=== PATIENT | female | born 1945 | race African-American/Black ===

== ENCOUNTER 2016-04-16 15:17 | Inpatient (IN) | payer OTHER ==
[~2016-04-16] VITALS: Ht 165.1 cm; Wt 173.7 kg
[~2016-04-16 15:17] MED LIST: ABILIFY5 MG PO; ALBUTEROL SULFATE IH; ALBUTEROL0.63 MG/3 IH; AMARYL1 MG PO; AMARYL2 MG PO; AMARYL4 MG PO; AMBIEN10 MG PO; ARIXTRA10 MG/0.8 SQ; ASPIR-TRIN325 M1 PO; ASPIRIN81 M1 PO; BACTROBAN CREAM15 GM TP; BENADRYL25 MG PO; BENTYL20 MG PO; BIOTIN 5000MCG PO; Bentyl PO; CEFTIN500 MG PO; CELEXA10 M1 PO; CELEXA10 MG PO; CELEXA20 MG PO; CHERATUSSIN AC473 ML PO; CITALOPRAM HBR20 MG PO; CLEOCIN150 MG PO; CLOBETASOL PROP60 GM TP; COMBIVENT INH14.7 GM IH; COREG12.5 M1 PO; COREG12.5 MG PO; COUMADIN,JANTO7.5 MG PO; COUMADIN,JANTOV10 MG PO; COUMADIN,JANTOVE5 MG PO; COUMADIN1 MG; COUMADIN10 MG PO; COUMADIN5 MG PO; COUMADIN7.5 MG PO; Ceftin PO; Combivent IH; Coreg PO; Coumadin Protocol PO; Coumadin,Jantoven PO; DERMAPHOR228 GM TP; DULCOLAX PR; DULCOLAX10 MG PR; DUONEB 2.5-0.5 M3 ML IH; EDLUAR10 MG SL; ENDOCET 5-3251 EACH PO; FERROUS FUMARATE PO; FIORICET 50-321 EAC1 PO; FIORICET 50-321 EACH PO; FIORICET PO; FIORICET,ESG1 TABLET PO; FLONASE16 G1 BOTH NARES; FLONASE16 GM BOTH NARES; FLONASE16 GM NS; FLOVENT 11120 INHALA IH; FLOVENT IH; FOLIC ACID1 MG PO; FUROSEMIDE80 MG PO; Flonase BOTH NARES; Flonase NS; Flovent 110 mcg IH; GLIMEPIRIDE2 MG PO; GLYNASE3 MG PO; GUIATUSS100 MG/5 M PO; HYDROCODON-ACE1 EAC7 PO; IPRATROPIU0.2 MG/1 M IH; IRON325 M1 PO; JANUVIA PO; JANUVIA100 MG PO; KEFLEX500 MG PO; KETOCONAZOLE60 GM TP; KLOR-CON M2020 MEQ PO; LAC-HYDRIN 12%140 GM TL; LANTUS (UNITS)1 UNIT SC; LANTUS 10100 UNITS/ SC; LANTUS 3 M100 UNITS/ SC; LANTUS 3 M100 UNITS1 SC; LANTUS100 UNIT/1 SC; LANTUS100 UNIT/2 SQ; LASIX40 MG PO; LASIX80 MG PO; LEVEMIR100 UNIT/2 SC; LIDODERM 5% P1 PATCH PO; LIDODERM 5% P1 PATCH TD; LIFE-PACK0.8 MG PO; LISINOPRIL10 MG PO; LYRICA150 MG PO; LYRICA50 MG PO; Levaquin PO; MAALOX PLUS X-150 ML PO; MAALOX PLUS1 TABLET PO; MARTEN-TAB 3251 EACH PO; MEDROL DOSEPAK4 MG PO; MILK OF MAGNESI10 ML PO; MIRALAX17 GM PO; MIRALAX255 GM PO; MORPHINE SULFAT15 M1 PO; MORPHINE SULFAT15 MG PO; MS CONTIN,ORAMO15 M1 PO; MULTIVITAMIN1 EAC2 PO; MULTIVITAMINS1 EAC6 PO; MYCOSTATIN1 APPLICAT TP; NITROGLYCERIN0.4 MG SL; NORCO 5/3251 TABLET PO; NOVOLOG PE100 UNITS/ SC; NYSTATIN TP; OMEPRAZOLE20 MG PO; OMEPRAZOLE40 M1 PO; PERCOCET 5-3251 EACH PO; PERCOCET 5/31 TABLET PO; PERCOCET PO; PHILLIPS'400 MG/5 M PO; PLAVIX75 MG PO; POLYETHYLENE GL17 GM PO; PRAVACHOL20 MG PO; PRILOSEC20 MG PO; PRILOSEC40 MG PO; PRINIVIL10 MG PO; PRINIVIL20 MG PO; PROAIR HFA8.5 GM IH; Prilosec PO; Q-TUSSIN DM SY240 ML PO; ROBITUSSIN NIG118 ML PO; SENNA PLUS TAB1 EACH PO; SIMVASTATIN20 MG PO; SYMBICORT60 INHALAT IH; TAMIFLU75 MG PO; TEMOVATE 0.05%30 GM TP; TOPAMAX100 MG PO; TOPAMAX200 MG PO; TOPIRAMATE200 MG PO; TRAMADOL HCL50 MG PO; TRANSDERM-NITR0.4 MG TP; TYLENOL EXTRA500 MG PO; TYLENOL REGULA325 MG PO; TYLENOL WITH C1 EACH PO; Topamax PO; ULTRAM50 MG PO; VENTOLIN HFA18 GM IH; VICODIN,LORT1 TABLET PO; VITAMIN D5000 UNIT PO; VITAMIN D50000 UNIT PO; VITRON-C PO; VITRON-C TABLE1 EACH PO; WARFARIN SODIUM5 MG PO; ZANAFLEX2 M1 PO; ZESTRIL,PRINIV2.5 MG PO; ZESTRIL2.5 MG PO; ZITHROMAX250 MG PO; ZOCOR20 MG PO; ZOFRAN4 MG PO; ZYRTEC10 M1 PO; ZYRTEC10 M3 PO; [UNRECOGNIZED DRUG - OTHER] PO; [UNRECOGNIZED DRUG - OTHER] PO; celeXA PO; predniSONE PO
[2016-04-16 17:36] LABS: HEMATOCRIT 35.7 % (36.0-46.0); MCHC 32.2 G/DL (30.0-36.0); MCV 80.8 FL (83-99); MEAN PLAT.VOLUME 11.8 uM^3 (9.5-12.4); PLATELET COUNT 143 K/uL (156-360); RBC DIS.WIDTH-CV 16.4 % (11.8-14.6); RBC DIS.WIDTH-SD 46.8 % (39-53); RED BLOOD COUNT 4.42 M/uL (3.80-5.20); WHITE BLOOD COUNT 14.6 K/uL (4.1-10.2)
[2016-04-16 17:36] LABS: ADD MIUA? NO; BILIRUBIN NEGATIVE; BLOOD NEGATIVE; COLOR YELLOW ((YELLOW)); GLUCOSE (STRIP) NEGATIVE; KETONES NEGATIVE; LEUKOCYTES NEGATIVE; NITRITE NEGATIVE; PROTEIN (STRIP) NEGATIVE; UCUL ADDED? NO; UROBILINOGEN 0.2 MG/DL (0.2-1.0)
[2016-04-16 17:38] LABS: EOSINOPHIL (%) 0 % (0-5); IMMATURE GRANULOCYTE (%) 0.2 % (0.0-0.7); IMMATURE GRANULOCYTE COUNT 0.3 K/uL; LYMPHOCYTE COUNT 0.6 K/uL (1.0-2.8); MONOCYTE (%) 3.9 % (3-12); MONOCYTE COUNT 0.6 K/uL (0-0.8); NEUTROPHIL (%) 91.5 % (45-76); NEUTROPHIL COUNT 13.4 K/uL (1.8-6.4)
[2016-04-16 18:06] LABS: CHLORIDE 108 mEq/L (99-109); POTASSIUM 4.1 mEq/L (3.7-5.4); SODIUM 140 mEq/L (136-147); TROP-I INTERPRETATION NEGATIVE; TROPONIN-I 0.03 ng/mL (0.0-0.30)
[2016-04-16 18:08] LABS: GLUCOSE 178 mg/dL (70-99)
[2016-04-16 18:09] LABS: ANION GAP 10 MEQ/L (2-14)
[2016-04-16 18:10] LABS: TOTAL BILIRUBIN 0.6 mg/dL (0.0-1.0)
[2016-04-16 18:11] LABS: ALKALINE PHOSPHATASE 89 IU/L (3-129)
[2016-04-16 18:12] LABS: GFR ESTIMATE (CALCULATED) 44 mL/min/
[2016-04-16 18:13] LABS: UREA NITROGEN (BUN) 25 mg/dL (9-23)
[2016-04-16 18:15] LABS: LIPASE 17 U/L (1.0-51.0)
[2016-04-16 20:36] LABS: POINT-OF-CARE METER ID UU13113702
[2016-04-16 20:57] LABS: INFLUENZA A VIRAL ANTIGEN NEGATIVE; INFLUENZA B VIRAL ANTIGEN NEGATIVE
[2016-04-16 21:16] LABS: HEMATOCRIT 34.1 % (36.0-46.0); MCH 25.8 PG (29.0-34.0); MCHC 31.7 G/DL (30.0-36.0); MCV 81.6 FL (83-99); MEAN PLAT.VOLUME 11.7 uM^3 (9.5-12.4); PLATELET COUNT 129 K/uL (156-360); RBC DIS.WIDTH-CV 16.5 % (11.8-14.6); RBC DIS.WIDTH-SD 48.6 % (39-53); RED BLOOD COUNT 4.18 M/uL (3.80-5.20); WHITE BLOOD COUNT 12.2 K/uL (4.1-10.2)
[2016-04-16 21:27] LABS: CHLORIDE 109 mEq/L (99-109); POTASSIUM 4.1 mEq/L (3.7-5.4); SODIUM 140 mEq/L (136-147)
[2016-04-16 21:29] LABS: GLUCOSE 198 mg/dL (70-99)
[2016-04-16 21:30] LABS: ANION GAP 9 MEQ/L (2-14)
[2016-04-16 21:33] LABS: GFR ESTIMATE (CALCULATED) 38 mL/min/
[2016-04-16 21:34] LABS: UREA NITROGEN (BUN) 27 mg/dL (9-23)
[2016-04-17] VITALS (10 sets, daily range): BP systolic 90–145; BP diastolic 54–81
[2016-04-17 00:04] LABS: PROTHROMBIN TIME 17.5 (9.2-11.2); PTT 39.2 (25-32)
[2016-04-17 00:30] LABS: INTER. NORMALIZED RATIO 1.7
[2016-04-17 03:38] LABS: METH RESISTANT S AUREUS PCR POSITIVE (NEGATIVE)
[2016-04-17 03:48] LABS: PROBE CHECK PASS
[2016-04-17 05:46] LABS: INTER. NORMALIZED RATIO 1.6; PROTHROMBIN TIME 16.2 (9.2-11.2)
[2016-04-17 05:58] LABS: ANION GAP 12 MEQ/L (2-14); CHLORIDE 108 MEQ/L (99-109); GFR ESTIMATE (CALCULATED) 36 mL/min/; GLUCOSE 263 mg/dL (70-99); POTASSIUM 4.6 MEQ/L (3.7-5.4); SAMPLE HEMOLYSIS CHECK 0; SAMPLE ICTERIC CHECK 0; SAMPLE LIPEMIA CHECK 0; SODIUM 139 MEQ/L (136-147); UREA NITROGEN (BUN) 32 mg/dL (9-23)
[2016-04-17 06:54] LABS: EOSINOPHIL (%) 0 % (0-5); HEMATOCRIT 33.5 % (36.0-46.0); HEMATOLOGY COMMENT 1 SMEAR COMPATIBLE; IMMATURE GRANULOCYTE (%) 0.3 % (0.0-0.7); LYMPHOCYTE COUNT 0.5 K/uL (1.0-2.8); MCH 26.1 PG (29.0-34.0); MCHC 31.3 G/DL (30.0-36.0); MCV 83.1 FL (83-99); MEAN PLAT.VOLUME 11.5 uM^3 (9.5-12.4); MONOCYTE (%) 1.3 % (3-12); MONOCYTE COUNT 0.1 K/uL (0-0.8); NEUTROPHIL (%) 93.4 % (45-76); NEUTROPHIL COUNT 9.8 K/uL (1.8-6.4); PLAT.SUFFICIENCY DECREASED; PLATELET COUNT 123 K/uL (156-360); RBC DIS.WIDTH-CV 16.7 % (11.8-14.6); RBC DIS.WIDTH-SD 51.1 % (39-53); RED BLOOD COUNT 4.03 M/uL (3.80-5.20); USER ID CCL; WHITE BLOOD COUNT 10.5 K/uL (4.1-10.2)
[2016-04-17 07:57] LABS: POINT-OF-CARE METER ID UU14174217; POINT-OF-CARE USER ID NUTJLF39
[2016-04-17 12:07] LABS: POINT-OF-CARE METER ID UU14174217; POINT-OF-CARE USER ID NUTJLF39
[2016-04-17 16:43] LABS: POINT-OF-CARE METER ID UU14174217; POINT-OF-CARE USER ID NUTJLF39
[2016-04-17 22:08] LABS: POINT-OF-CARE METER ID UU14174217
[2016-04-18] VITALS (7 sets, daily range): BP systolic 106–148; BP diastolic 54–87
[2016-04-18 06:15] LABS: INTER. NORMALIZED RATIO 1.8; PROTHROMBIN TIME 19.1 (9.2-11.2)
[2016-04-18 06:33] LABS: MCH 26.1 PG (29.0-34.0); MCHC 31.6 G/DL (30.0-36.0); MCV 82.4 FL (83-99); NRBC (%) 0.5 /100 WBC (0-0); RBC DIS.WIDTH-CV 16.8 % (11.8-14.6); RBC DIS.WIDTH-SD 50.9 % (39-53); RED BLOOD COUNT 3.76 M/uL (3.80-5.20); WHITE BLOOD COUNT 10.2 K/uL (4.1-10.2)
[2016-04-18 06:34] LABS: DELETE MACHINE DIFF? YES
[2016-04-18 06:40] LABS: ANION GAP 9 MEQ/L (2-14); CHLORIDE 108 MEQ/L (99-109); POTASSIUM 4.4 MEQ/L (3.7-5.4); SAMPLE HEMOLYSIS CHECK 0; SAMPLE ICTERIC CHECK 0; SAMPLE LIPEMIA CHECK 0; SODIUM 136 MEQ/L (136-147)
[2016-04-18 06:46] LABS: GFR ESTIMATE (CALCULATED) 48 mL/min/; GLUCOSE 280 mg/dL (70-99); UREA NITROGEN (BUN) 37 mg/dL (9-23)
[2016-04-18 07:25] LABS: ABS NEUTROPHIL COUNT 9.32; ANISOCYTOSIS 1+; HYPOCHROMASIA 2+; MACROCYTES OCC; MICROCYTOSIS 1+; TEAR DROP CELLS OCC; USER ID TLW
[2016-04-18 07:39] LABS: PLATELET COUNT UNABLE TO REPORT K/uL (156-360)
[2016-04-18] MEDS ORDERED: TOPIRAMATE200 MG PO (11:35)
[2016-04-18] MEDS ORDERED: LISINOPRIL10 MG PO (11:35)
[2016-04-18] MEDS ORDERED: SIMVASTATIN20 MG PO (11:35)
[2016-04-18] MEDS ORDERED: HYDROCODON-ACE1 EAC9 PO (11:36)
[2016-04-18] MEDS ORDERED: JANUVIA100 MG PO (11:36)
[2016-04-18] MEDS ORDERED: BUMETANIDE1 MG PO (11:38)
[2016-04-18] MEDS ORDERED: WARFARIN SODIUM5 MG PO (11:41)
[2016-04-18] MEDS ORDERED: WARFARIN SODIUM6 MG PO (11:41)
[2016-04-18] MEDS ORDERED: CITALOPRAM HBR10 MG PO (11:42)
[2016-04-18] MEDS ORDERED: OMEPRAZOLE20 MG PO (11:42)
[2016-04-18] MEDS ORDERED: ZOLPIDEM TARTRA10 MG PO (11:42)
[2016-04-18] MEDS ORDERED: LANTUS 10100 UNITS/ SC (11:43)
[2016-04-18] MEDS ORDERED: LANTUS 3 M100 UNITS1 SC (11:43)
[2016-04-18] MEDS ORDERED: ADVAIR 250/501 DISK IH (11:44)
[2016-04-18] MEDS ORDERED: NOVOLOG PE100 UNITS/ SC (11:44)
[2016-04-18] MEDS ORDERED: PROAIR HFA8.5 GM IH (11:45)
[2016-04-18] MEDS ORDERED: BENADRYL25 MG PO (11:45)
[2016-04-18] MEDS ORDERED: BENTYL20 MG PO (11:46)
[2016-04-18] MEDS ORDERED: BIOTIN5000 MCG PO (11:46)
[2016-04-18] MEDS ORDERED: LAXATIVE SUPPOS10 MG PR (11:47)
[2016-04-18] MEDS ORDERED: ZYRTEC10 M3 PO (11:50)
[2016-04-18] MEDS ORDERED: LYRICA150 MG PO (11:51)
[2016-04-18] MEDS ORDERED: LIDODERM 5% P1 PATCH TD (11:51)
[2016-04-18] MEDS ORDERED: MIRALAX17 GM PO (11:51)
[2016-04-18] MEDS ORDERED: DUONEB 2.5-0.5 M3 ML AEROSOL (11:51)
[2016-04-18] MEDS ORDERED: DAILY VALUE1 EACH PO (11:52)
[2016-04-18 12:12] LABS: POINT-OF-CARE METER ID UU14174217
[2016-04-18 16:38] LABS: POINT-OF-CARE METER ID UU14162508
[2016-04-19 04:30] VITALS: BP 143/69
[2016-04-19 08:15] VITALS: BP 145/69
[2016-04-19 10:05] LABS: PROTHROMBIN TIME 20.3 (9.2-11.2)
[2016-04-19 15:25] VITALS: BP 145/79
[2016-04-19 20:18] VITALS: BP 114/70
[2016-04-20] VITALS (7 sets, daily range): BP systolic 117–157; BP diastolic 59–72
[2016-04-20 11:42] LABS: PROTHROMBIN TIME 20.6 (9.2-11.2)
[2016-04-21 03:12] VITALS: BP 138/63
[2016-04-21 08:20] LABS: NRBC (%) 0.5 /100 WBC (0-0)
[2016-04-21 08:38] LABS: INTER. NORMALIZED RATIO 1.9; PROTHROMBIN TIME 19.7 (9.2-11.2)
[2016-04-21 09:02] LABS: EOSINOPHIL (%) 2.8 % (0-5); EOSINOPHIL COUNT 0.2 K/uL (0-0.3); HEMATOCRIT 33.2 % (36.0-46.0); IMMATURE GRANULOCYTE (%) 1.4 % (0.0-0.7); IMMATURE GRANULOCYTE COUNT 0.1 K/uL; LYMPHOCYTE COUNT 1.4 K/uL (1.0-2.8); MCH 25.9 PG (29.0-34.0); MCHC 31.9 G/DL (30.0-36.0); MONOCYTE (%) 6.1 % (3-12); MONOCYTE COUNT 0.4 K/uL (0-0.8); NEUTROPHIL (%) 64.8 % (45-76); NEUTROPHIL COUNT 3.7 K/uL (1.8-6.4); RBC DIS.WIDTH-CV 16.5 % (11.8-14.6); RBC DIS.WIDTH-SD 48.9 % (39-53)
[2016-04-21 09:03] LABS: WHITE BLOOD COUNT 5.8 K/uL (4.1-10.2)
[2016-04-21 09:05] LABS: ANION GAP 8 MEQ/L (2-14); CHLORIDE 109 MEQ/L (99-109); GFR ESTIMATE (CALCULATED) > 59 mL/min/; GLUCOSE 212 mg/dL (70-99); SAMPLE HEMOLYSIS CHECK 0; SAMPLE ICTERIC CHECK 0; SAMPLE LIPEMIA CHECK 0; SODIUM 140 MEQ/L (136-147); UREA NITROGEN (BUN) 21 mg/dL (9-23)
[2016-04-21 09:11] VITALS: BP 129/66
[2016-04-21 11:01] LABS: MEAN PLAT.VOLUME 11.8 uM^3 (9.5-12.4); PLAT.SUFFICIENCY ADEQUATE
[2016-04-21 11:19] LABS: PLATELET COUNT 155 K/uL (156-360)
[2016-04-21 12:17] LABS: POINT-OF-CARE METER ID UU14162508
[2016-04-21 12:35] VITALS: BP 136/86
[2016-04-21 15:49] VITALS: BP 138/75
[2016-04-21 21:49] LABS: POINT-OF-CARE METER ID UU14162508
[2016-04-21 22:51] VITALS: BP 139/88
[2016-04-22 06:22] LABS: POINT-OF-CARE METER ID UU14162508
[2016-04-22 07:26] LABS: INTER. NORMALIZED RATIO 2.1; PROTHROMBIN TIME 21.5 (9.2-11.2)
[2016-04-22 08:10] VITALS: BP 130/88
[2016-04-22 12:34] VITALS: BP 132/80
[2016-04-22 15:48] VITALS: BP 137/65
[2016-04-22 16:38] LABS: POINT-OF-CARE METER ID UU14162508
[2016-04-22 23:45] VITALS: BP 164/74
[2016-04-23 07:43] LABS: INTER. NORMALIZED RATIO 2.1; PROTHROMBIN TIME 21.6 (9.2-11.2)
[2016-04-23 08:20] VITALS: BP 136/71
[2016-04-23 16:00] VITALS: BP 155/76
[2016-04-23] MEDS ORDERED: TYLENOL REGULA325 MG PO (19:37)
[2016-04-23] MEDS ORDERED: DURICEF1 GM PO (19:40)
[2016-04-23] MEDS ORDERED: Zeasorb Antifungal T TP (19:44)
[2016-04-24 00:32] VITALS: BP 143/83
[2016-04-24 07:15] LABS: INTER. NORMALIZED RATIO 2.1; PROTHROMBIN TIME 21.4 (9.2-11.2)
[2016-04-24 08:24] VITALS: BP 158/72
[2016-04-24 12:02] LABS: POINT-OF-CARE METER ID UU14162508
== END 2016-04-24 17:30 | disposition home or self-care (01) | DRG 872 ==
LOC: EME 15:17 → 4WEST 22:30 → EDOF 22:30 → 4WEST 04-17 02:16 → 2EAST 04-18 13:39
PROVIDERS: Emergency Medicine; Family Medicine Sports Medicine
DX: A40.1 Sepsis due to streptococcus, group B (principal); L03.115 Cellulitis of right lower limb; Z68.44 Body mass index [BMI] 60.0-69.9, adult; E66.01 Morbid (severe) obesity due to excess calories; E78.5 Hyperlipidemia, unspecified; E11.22 Type 2 diabetes mellitus with diabetic chronic kidney disease; I12.9 Hypertensive chronic kidney disease with stage 1 through stage 4 chronic kidney disease, or unspecified chronic kidney disease; R00.0 Tachycardia, unspecified; I87.2 Venous insufficiency (chronic) (peripheral); I50.9 Heart failure, unspecified; Z88.2 Allergy status to sulfonamides; Z88.8 Allergy status to other drugs, medicaments and biological substances; Z95.1 Presence of aortocoronary bypass graft; Z98.61 Coronary angioplasty status; Z86.718 Personal history of other venous thrombosis and embolism; Z79.01 Long term (current) use of anticoagulants; N18.3 Chronic kidney disease, stage 3 (moderate); R50.9 Fever, unspecified; R10.9 Unspecified abdominal pain
CPT/HCPCS: 70450; 71010; 74177; 76705; 80048; 80048 91; 80053; 81003; 82009; 82945; 82948; 83605; 83690; 83880; 84157; 84443; 84484; 85025; 85027; 85610; 85730; 87040; 87070; 87077; 87186; 87205; 87502; 87641; 87801; 89051; 93306; 94640; 94640 76; 94760; 94799; 97530 GO; 97530 GP; 99202; 99281; 99285; J0690; J0696; J1100; J1170; J1815; J2310; J2405; J3370; J7030; J7040; J7050